=== PATIENT | female | born 1960 | race Caucasian/White ===

== ENCOUNTER 2025-06-19 07:26 | Emergency (ER) | payer OTHER ==
[2025-06-19] MEDS: Ketorolac 60 MG/2 ML SDV IM ONE (08:14)
== END 2025-06-19 08:55 | disposition home or self-care (01) ==
LOC: JD.ED 07:26
DX: M54.12 Radiculopathy, cervical region (principal); Z88.5 Allergy status to narcotic agent; Z88.6 Allergy status to analgesic agent
CPT/HCPCS: 72040; 72070; 96372; 99283; J1171; J1885; 99284